=== PATIENT | female | born 1935 | race African-American/Black ===

== ENCOUNTER 2021-11-04 11:53 | Emergency (ER) | payer OTHER ==
[~2021-11-04] VITALS: Ht 160 cm; Wt 93.2 kg
[2021-11-04] MEDS ORDERED: SACU1TAB PO (12:07)
[2021-11-04] MEDS ORDERED: PRAV40TA4 PO (12:07)
[2021-11-04] MEDS ORDERED: SULF500T60 PO (12:07)
[2021-11-04] MEDS ORDERED: FURO40 PO (12:07)
[2021-11-04] MEDS ORDERED: XALA2.5OS OU (12:07)
[2021-11-04] MEDS ORDERED: LEVO50 PO (12:07)
[2021-11-04] MEDS ORDERED: LEFL10TA19 PO (12:07)
[2021-11-04] MEDS ORDERED: BENA20TA83 PO (12:07)
[2021-11-04] MEDS ORDERED: GABA-1181 PO (12:07)
[2021-11-04] MEDS ORDERED: CARV6 PO (12:07)
[2021-11-04] MEDS ORDERED: FAMO20 PO (12:07)
[2021-11-04] MEDS ORDERED: SITA1TBM4 PO (12:07)
[2021-11-04] MEDS ORDERED: PANT-31 PO (12:07)
[2021-11-04] MEDS ORDERED: BUDE10.26 IH (12:07)
[2021-11-04] MEDS ORDERED: MECO10005 PO (12:07)
[2021-11-04] MEDS ORDERED: ACETAMINOPHEN 500 MG TABLET PO ONE (12:30)
[2021-11-04] MEDS ORDERED: CETIRIZINE HCL 10 MG TABLET PO ONE (12:30)
[2021-11-04] MEDS ORDERED: FLUTICASONE PROPIONATE 50 MCG/SPRAY 16 GM NASAL SPRAY NASAL ONE (12:30)
[2021-11-04 12:43] LABS: BASOPHILS % (AUTO) 0.4 % (0.0-2.0); EOSINOPHILS % (AUTO) 3.8 % (1.0-6.0); HEMATOCRIT 32.9 % (36-46); HEMOGLOBIN 10.4 g/dL (12.0-16.0); LYMPHOCYTES # (AUTO) 2.5 K/uL (1.0-4.8); LYMPHOCYTES % (AUTO) 43.4 % (22.0-44.0); MEAN CORPUSCULAR HEMOGLOBIN 21.5 pg (26.0-34.0); MEAN CORPUSCULAR HGB CONC 31.7 G/dL (31.0-37.0); MEAN CORPUSCULAR VOLUME 68 fL (80-100); MONOCYTES # (AUTO) 0.6 K/uL (0.1-1.0); MONOCYTES % (AUTO) 10.1 % (2.0-9.0); NEUTROPHILS # (AUTO) 2.4 K/uL (1.8-7.7); NEUTROPHILS % (AUTO) 42.3 % (40.0-70.0); PLATELET COUNT (AUTO) 286 K/uL (150-450); RED BLOOD CELL COUNT(AUTO) 4.84 MIL/uL (4.00-5.20); RED CELL DISTRIBUTION WIDTH 16.9 % (11.5-14.5)
[2021-11-04 12:53] LABS: CALCIUM, TOTAL 9.4 mg/dL (8.8-10.5); CREATININE 1.49 mg/dL (0.60-1.30); POTASSIUM 4.4 mmol/L (3.5-5.1)
[2021-11-04 13:00] LABS: ALBUMIN 3.1 g/dL (3.4-5.0); BILIRUBIN,TOTAL 0.3 mg/dL (0.1-1.0); TOTAL PROTEIN, SERUM 7.8 g/dL (6.4-8.2)
[2021-11-04 13:05] LABS: APPEARANCE,URINE CLEAR (CLEAR); BACTERIA,URINE None Seen /HPF (None Seen); BILIRUBIN,URINE NEGATIVE (NEGATIVE); GLUCOSE, URINE (UA) NEGATIVE (NEGATIVE); KETONES,URINE NEGATIVE (NEGATIVE); LEUKOCYTE ESTERASE ,URINE NEGATIVE (NEGATIVE); NITRATE,URINE NEGATIVE (NEGATIVE); OCCULT BLOOD,URINE NEGATIVE (NEGATIVE); PROTEIN,URINE NEGATIVE (NEGATIVE); RBC,URINE None Seen /HPF (0-2); UROBILINOGEN,URINE 0.2 mg/dL (<=1.0); WBC,URINE None Seen /HPF (0-5)
[2021-11-04 14:35] VITALS: BP 124/71
[2021-11-04] MEDS ORDERED: FLUT16H NASAL (14:45)
[2021-11-04] MEDS ORDERED: CETI-450 PO (14:45)
== END 2021-11-04 15:04 | disposition home or self-care (01) ==
LOC: EMS 11:57
DX: R51.9 Headache, unspecified (principal); J30.2 Other seasonal allergic rhinitis; I10 Essential (primary) hypertension; E11.9 Type 2 diabetes mellitus without complications; Z87.891 Personal history of nicotine dependence; Z79.899 Other long term (current) drug therapy
CPT/HCPCS: 70450; 80053; 81001; 85025; 99284